=== PATIENT | female | born 1990 | race African-American/Black ===

== ENCOUNTER 2016-05-04 05:06 | Inpatient (IN) | payer OTHER ==
[~2016-05-04] VITALS: Ht 167.6 cm; Wt 144.2 kg
[2016-05-04] VITALS (8 sets, daily range): BP systolic 110–137; BP diastolic 55–92
[~2016-05-04 05:06] MED LIST: BENTYL10 MG PO; KEFLEX500 MG PO; LO-DOSE ASPIRIN81 M2 PO; MACROBID100 MG PO; NITROFURANTOIN100 M3 PO; NO HOME MEDS; PERCOCET 5/31 TABLET PO; PRENATAL TABLE1 EAC3 PO; TRAMADOL HCL50 MG PO; ZOFRAN ODT4 MG PO; ZOFRAN4 MG PO
[2016-05-04 06:18] LABS: EOSINOPHIL (%) 1.2 % (0-5); EOSINOPHIL COUNT 0.1 K/uL (0-0.3); HEMATOCRIT 37.3 % (36.0-46.0); IMMATURE GRANULOCYTE (%) 0.6 % (0.0-0.7); IMMATURE GRANULOCYTE COUNT 0.1 K/uL; LYMPHOCYTE COUNT 2.4 K/uL (1.0-2.8); MCH 27.9 PG (29.0-34.0); MCHC 32.2 G/DL (30.0-36.0); MCV 86.7 FL (83-99); MEAN PLAT.VOLUME 11.6 uM^3 (9.5-12.4); MONOCYTE (%) 6.7 % (3-12); MONOCYTE COUNT 0.7 K/uL (0-0.8); NEUTROPHIL (%) 69.7 % (45-76); NEUTROPHIL COUNT 7.5 K/uL (1.8-6.4); PLATELET COUNT 205 K/uL (156-360); RBC DIS.WIDTH-CV 14.6 % (11.8-14.6); RBC DIS.WIDTH-SD 45.3 % (39-53); WHITE BLOOD COUNT 10.8 K/uL (4.1-10.2)
[2016-05-05] VITALS (7 sets, daily range): BP systolic 102–126; BP diastolic 54–63
[2016-05-05 07:29] LABS: EOSINOPHIL (%) 1.1 % (0-5); EOSINOPHIL COUNT 0.1 K/uL (0-0.3); HEMATOCRIT 30.7 % (36.0-46.0); IMMATURE GRANULOCYTE (%) 0.5 % (0.0-0.7); IMMATURE GRANULOCYTE COUNT 0.1 K/uL; LYMPHOCYTE COUNT 2.1 K/uL (1.0-2.8); MCH 28.3 PG (29.0-34.0); MCHC 32.6 G/DL (30.0-36.0); MEAN PLAT.VOLUME 11.7 uM^3 (9.5-12.4); MONOCYTE (%) 9.5 % (3-12); MONOCYTE COUNT 1.1 K/uL (0-0.8); NEUTROPHIL (%) 70.9 % (45-76); NEUTROPHIL COUNT 8.3 K/uL (1.8-6.4); PLATELET COUNT 173 K/uL (156-360); RBC DIS.WIDTH-CV 14.6 % (11.8-14.6); RBC DIS.WIDTH-SD 45.8 % (39-53); RED BLOOD COUNT 3.53 M/uL (3.80-5.20); WHITE BLOOD COUNT 11.7 K/uL (4.1-10.2)
[2016-05-06 02:29] VITALS: BP 118/71
[2016-05-06 07:50] VITALS: BP 125/58
[2016-05-06] MEDS ORDERED: DOCUSATE SODIU100 MG PO (08:24)
[2016-05-06] MEDS ORDERED: IBUPROFEN800 MG PO (08:24)
[2016-05-06] MEDS ORDERED: ENDOCET 5-3251 EACH PO (08:24)
== END 2016-05-06 14:25 | disposition home or self-care (01) | DRG 766 ==
LOC: 2WEST 05:06 → 2SOUTH 11:39 → 2WEST 05-06 14:25
PROVIDERS: Obstetrics & Gynecology
DX: O34.211 Maternal care for low transverse scar from previous cesarean delivery (principal); N85.8 Other specified noninflammatory disorders of uterus; Z3A.39 39 weeks gestation of pregnancy; Z37.0 Single live birth; O99.214 Obesity complicating childbirth; E66.9 Obesity, unspecified; Z30.2 Encounter for sterilization
CPT/HCPCS: 85025; 86850; 86900; 86901; 88302; J1100; J1580; J1885; J2274; J2405; J7050; J7120